=== PATIENT | female | born 1955 | race Caucasian/White ===

== ENCOUNTER → 2016-10-16 | Outpatient (CLI) | payer OTHER ==
--- NOTE | 2016-10-16 16:42 | US ---
Ultrasound Thyroid History: Thyroid nodule. E04.2. Comparison: Ultrasound September 2015 Technique: Longitudinal and transverse ultrasound imaging of the thyroid gland. Findings: Right lobe of the thyroid measures 4.7 x 1.8 x 1.6 cm. Left lobe of the thyroid measures 4 x 1.2 x 0.9 cm. Isthmus thickness is 0.3 cm. In the lower pole of the right lobe, there is a solid heterogenous 2 x 1.5 x 1.4 cm nodule with a few internal calcifications, previously measuring 2 x 1.5 x 1.4 cm without significant interval change i n size. In the right lobe midpole region, there is a 3 x 2 x 2 mm hypoechoic nodule. In the left lobe mid pole region, there is a 3 x 3 x 2 mm hypoechoic nodule, which are stable. Impression: 1. Right lobe lower pole dominant solid 2 x 1.5 x 1.4 cm nodule, which appears stable since September 04. 2. Recommend ultrasound-guided FNA biopsy of right lobe lower pole nodule if not previously performed to exclude malignancy.
== END ==
LOC: BMCIMAGING 10:47
PROVIDERS: ATTEND Internal Medicine Endocrinology, Diabetes & Metabolism
DX: E04.2 Nontoxic multinodular goiter (principal)
CPT/HCPCS: 76536-PO

== ENCOUNTER → 2017-03-15 | Outpatient (CLI) | payer OTHER | LOC: FIMAGING 11:14 | PROVIDERS: ATTEND Internal Medicine | DX: Z12.31 Encounter for screening mammogram for malignant neoplasm of breast (principal) | CPT/HCPCS: G0202 ==

== ENCOUNTER → 2017-12-19 | Outpatient (CLI) | payer OTHER | LOC: FIMAGING 07:50 | PROVIDERS: ATTEND Internal Medicine | DX: R16.0 Hepatomegaly, not elsewhere classified (principal); K76.0 Fatty (change of) liver, not elsewhere classified ==

== ENCOUNTER → 2018-10-14 | Outpatient (CLI) | payer OTHER ==
[~2018-10-14] MED LIST: GADOXETATE DISODIUM 2.5 MMOL/10 ML VIAL IV ONE
== END ==
LOC: FIMAGING 12:36
PROVIDERS: ATTEND Physician Assistant
DX: K76.0 Fatty (change of) liver, not elsewhere classified (principal)
CPT/HCPCS: 74183; A9581